=== PATIENT | female | born 1970 | race Caucasian/White ===

== ENCOUNTER 2017-08-16 21:09 | Emergency (ER) | payer BC, OTHER ==
[~2017-08-16] VITALS: Ht 180.3 cm; Wt 68.0 kg
[~2017-08-16 21:09] MED LIST: ATIVAN0.5 MG ORAL
[2017-08-16 21:15] VITALS: BP 148/98
[2017-08-16 22:21] LABS: BASOPHILS % (AUTO) 1.8 % (0.0-2.0); EOSINOPHILS % (AUTO) 1.5 % (0.0-3.0); HEMATOCRIT 48.7 % (37.0-47.0); HEMOGLOBIN 16.8 G/DL (12.0-16.0); LYMPHOCYTES % (AUTO) 38.9 % (20.0-45.0); MEAN CORPUSCULAR VOLUME 102 FL (80-99); MONOCYTES % (AUTO) 7.5 % (1.0-10.0); NEUTROPHILS % (AUTO) 50.3 % (45.0-75.0); PLATELET COUNT 294 K/UL (150-450); RED BLOOD COUNT 4.78 M/UL (4.20-5.40); RED CELL DISTRIBUTION WIDTH 12.8 % (11.6-14.8); WHITE BLOOD COUNT 4.3 K/UL (4.8-10.8)
[2017-08-16 22:33] LABS: ANION GAP 11 mmol/L (5-15); BLOOD UREA NITROGEN 7 mg/dL (7-18); CALCIUM 9.8 MG/DL (8.5-10.1); CARBON DIOXIDE 29 MMOL/L (21-32); CHLORIDE 100 MMOL/L (98-107); CREATININE 0.8 MG/DL (0.55-1.30); POTASSIUM 3.5 MMOL/L (3.5-5.1); SODIUM 140 MMOL/L (136-145)
[2017-08-16 22:41] LABS: ALANINE AMINOTRANSFERASE 240 U/L (12-78); ALBUMIN 4.5 G/DL (3.4-5.0); ALKALINE PHOSPHATASE 105 U/L (46-116); ASPARTATE AMINO TRANSFERASE 249 U/L (15-37); BILIRUBIN,TOTAL 0.4 MG/DL (0.2-1.0)
[2017-08-16 23:15] VITALS: BP 149/96
[2017-08-17] VITALS (7 sets, daily range): BP systolic 140–159; BP diastolic 73–99
--- NOTE | 2017-08-17 01:07 | Emergency Room Report ---
History of Present Illness General Chief Complaint: Behavioral Complaint Source: Patient Present Illness HPI This a 47-year-old female brought in by EMS with police escort as a 5150. A friend called 911 because patient call her friend and told her that she is depressed and want to overdose on her 's heart medicine and take it with her Xanax. Patient denies any of the symptoms. She denies any suicidal thoughts or without about. She denies making any of those, it. I spoke with the law enforcement officer. He said that he spoke with her friend and confirm the history. Because of that patient was placed on a 5150. [place] that she only took one drink tonight. Allergies: Coded Allergies: No Known Allergies (Unverified , 03/15/14) Patient History Past Medical History: see triage record, old chart reviewed Past Surgical History: none Family History: none Social History: lives alone Last Menstrual Period: 2 weeks ago Now: No Immunizations: other Reviewed Nursing Documentation: PMH: Agreed, PSxH: Agreed Nursing Documentation-PMH Hx Hypertension: Yes Hx Neurological Problems: Yes - ANXIETY Review of Systems ENT: Denies: sore throat Cardiovascular: Denies: chest pain, palpitations Gastrointestinal/Abdominal: Denies: nausea, vomiting, diarrhea Musculoskeletal: Denies: back problems Skin: Denies: rash Neurological: Denies: KRUSE, seizures All Other Systems: negative except mentioned in HPI Physical Exam Vital Signs Date Time Temp Pulse Resp B/P (MAP) Pulse Ox O2 Delivery O2 Flow Rate FiO2 08/16/17 21:01 98.7 55 18 155/115 98 Room Air 98.8 vitals normal except for high blood pressure. Repeat blood pressures normal. Sp02 EP Interpretation: reviewed, normal General Appearance: alert/responsive, no apparent distress, non-toxic Head: normocephalic, atraumatic Eyes: PERRL, EOMI ENT: oropharynx normal Neck: supple/symm/no masses Respiratory: effort normal, no rhonchi, no wheezing Cardiovascular: no murmur, gallop, rub Gastrointestinal: non-tender, no mass, non-distended, no rebound/guarding, normal bowel sounds Musculoskeletal: gait & station normal Neurologic: oriented x3, sensory intact, motor strength/tone normal Skin: no rash, normal palpation Medical Decision Making Diagnostic Impression: Primary Impression: Alcohol intoxication Qualified Codes: F10.920 - Alcohol use, unspecified with intoxication, uncomplicated Additional Impression: Suicidal ideation ER Course Patient presents with alcohol intoxication and vague suicidal thoughts. She is now denying any suicidal thoughts or plan. Will get psychiatric evaluation. She is medically clear. Lab Results Impression labs normal EKG Diagnostic Results Rate: normal Rhythm: NSR ST Segments: no acute changes Rhythm Strip Diag. Results Rhythm Strip Time: 01:19 EP Interpretation: yes Rate: 90 Rhythm: NSR, no PVC's, no ectopy Last Vital Signs Date Time Temp Pulse Resp B/P (MAP) Pulse Ox O2 Delivery O2 Flow Rate FiO2 08/16/17 23:15 98.6 66 18 149/96 98 Room Air 98.6 Status: improved Condition: Stable Referrals: NOT CHOSEN MATHEW/,REFERRING (PCP) SINGH ROBLEDO M.D. Aug 17, 2017 01:07
--- NOTE | 2017-08-17 15:16 | Cardiology Report ---
APPROVED REPORT EKG Measurement Heart [id number] Normal sinus rhythm Low voltage QRS Borderline ECG
--- NOTE | 2017-08-18 00:43 | Consultation ---
History of Present Illness General Date patient seen: Aug 17, 2017 Chief Complaint: Behavioral Complaint Present Illness HPI 47-year-old female with hx of anxiety was brought in by EMS with police escort on a 5150. Her 's ex called 911 because patient call the ex wifes brother and told him that she is depressed and want to overdose on her 's heart medicine and take it with her Xanax. Patient denied any depressive, manic or psychotic sxs. the pt denied suicidal thoughts or without about. the pt stated that the whole family is fighting over money as her father in law in also passing. the pt stated that the mother in law in trying to kick her out of the house. she denied abusing alcohol or drugs. I spoke to ex who stated that the pt contacted her brother. Allergies: Coded Allergies: No Known Allergies (Unverified , 03/15/14) Medication History Scheduled Lorazepam* (Ativan*), 0.5 MG ORAL THREE TIMES A DAY Patient History Limited by: medical condition History Provided By: Patient, Medical Record, PMD Healthcare decision maker Resuscitation status Advanced Directive on File Past Medical/Surgical History Past Medical/Surgical History: (1) Chest pain (2) Chest pain Review of Systems Psychiatric: Reports: prior hx, anxiety, depressed feelings Physical Exam General Appearance: no apparent distress, alert Neurologic: oriented x 3, responsive, depressed affect Last 24 Hour Vital Signs Date Time Temp Pulse Resp B/P (MAP) Pulse Ox O2 Delivery O2 Flow Rate FiO2 08/17/17 13:30 98.3 79 18 155/73 98 Room Air 98.4 08/17/17 12:04 98.4 92 18 159/75 97 Room Air 98.4 08/17/17 10:03 98.4 76 17 144/91 98 Room Air 98.4 08/17/17 07:44 98.1 89 19 159/93 98 Room Air 98.1 08/17/17 05:15 98.2 72 17 140/90 99 Room Air 98.2 08/17/17 03:15 98.1 69 16 146/92 98 Room Air 98.1 08/17/17 01:15 98.4 72 18 150/99 97 Room Air 98.4 Height (Feet): 5 Height (Inches): 11.00 Weight (Pounds): 150 Assessment/Plan Status: stable Assessment/Plan MDD anxiety alcohol intox the pt is not at imminent dts/dto she was referred to outpt psych will dc the Lilia King M.D. Aug 18, 2017 00:43
== END 2017-08-17 13:30 | disposition home or self-care (01) ==
LOC: EDBD 21:09 → EMR 21:38
DX: F10.920 Alcohol use, unspecified with intoxication, uncomplicated (principal); R45.851 Suicidal ideations; F41.9 Anxiety disorder, unspecified; I10 Essential (primary) hypertension
CPT/HCPCS: 36415; 80053; 80307; 85025; 93005; 99284; G0480; 80329